=== PATIENT | female | born 1995 | race Asian ===

== ENCOUNTER 2018-03-28 15:04 | Emergency (ER) | payer OTHER ==
[~2018-03-28] VITALS: Ht 162.6 cm; Wt 54.4 kg
[2018-03-28 15:10] VITALS: BP 113/69
[2018-03-28] MEDS ORDERED: NKM (15:11)
[2018-03-28] MEDS ORDERED: levETIRAcetam 500 MG in D5W 110 ML IV ONE (15:30)
[2018-03-28 15:42] LABS: BASOPHILS % (AUTO) 0.8 % (0.0-2.0); EOSINOPHILS % (AUTO) 2.2 % (0.0-3.0); HEMATOCRIT 37.7 % (37.0-47.0); HEMOGLOBIN 13.1 G/DL (12.0-16.0); LYMPHOCYTES % (AUTO) 16.2 % (20.0-45.0); MEAN CORPUSCULAR VOLUME 91 FL (80-99); MONOCYTES % (AUTO) 5.5 % (1.0-10.0); NEUTROPHILS % (AUTO) 75.3 % (45.0-75.0); PLATELET COUNT 331 K/UL (150-450); RED BLOOD COUNT 4.14 M/UL (4.20-5.40); RED CELL DISTRIBUTION WIDTH 10.8 % (11.6-14.8); WHITE BLOOD COUNT 8.7 K/UL (4.8-10.8)
[2018-03-28 15:52] LABS: BILIRUBIN, URINE NEGATIVE (NEGATIVE); COLOR,URINE PALE YELLOW; GLUCOSE, URINE (UA) NEGATIVE (NEGATIVE); KETONES,URINE 1+ (NEGATIVE); LEUKOCYTE ESTERASE ,URINE 2+ (NEGATIVE); NITRITE,URINE NEGATIVE (NEGATIVE); PH,URINE 5 (4.5-8.0); PROTEIN,URINE 3+ (NEGATIVE); UROBILINOGEN,URINE NORMAL MG/DL (0.0-1.0)
[2018-03-28 15:54] LABS: ANION GAP 13 mmol/L (5-15); BLOOD UREA NITROGEN 12 mg/dL (7-18); CARBON DIOXIDE 21 MMOL/L (21-32); CHLORIDE 103 MMOL/L (98-107); CREATININE 0.8 MG/DL (0.55-1.30); POTASSIUM 3.5 MMOL/L (3.5-5.1); SODIUM 137 MMOL/L (136-145)
[2018-03-28 15:58] LABS: ALANINE AMINOTRANSFERASE 21 U/L (12-78); ALBUMIN/GLOBULIN RATIO 1.1 (1.0-2.7); ALKALINE PHOSPHATASE 42 U/L (46-116); ASPARTATE AMINO TRANSFERASE 15 U/L (15-37); BILIRUBIN,TOTAL 0.3 MG/DL (0.2-1.0)
[2018-03-28 16:01] LABS: APPEARANCE,URINE SLIGHTLY CLOUDY
[2018-03-28] MEDS ORDERED: cefTRIAXone 1 GM in NS 55 ML IVPB ONE (16:15)
[2018-03-28] MEDS ORDERED: KEPPRA500 M4 ORAL (16:43)
[2018-03-28] MEDS ORDERED: CEPHALEXIN500 MG ORAL (16:43)
--- NOTE | 2018-03-28 16:51 | Emergency Room Report ---
History of Present Illness General Chief Complaint: Seizure Source: Patient Present Illness HPI Patient's 22-year-old female presented after witnessed seizure. Patient had prior history of intermittent seizures. The patient states she's had this for the past several years approximately once a year. The patient previously been seen by neurology and had previous MRI. The patient had prior history of seizure but is not currently taking any medications.The patient had no current complaints of pain. She denies any vomiting or diarrhea Allergies: Coded Allergies: No Known Allergies (Unverified , 03/28/18) Patient History Past Medical History: see triage record Last Menstrual Period: 03/2018 Reviewed Nursing Documentation: PMH: Agreed; PSxH: Agreed Nursing Documentation-PMH Past Medical History: No History, Except For Review of Systems All Other Systems: negative except mentioned in HPI Physical Exam Vital Signs Date Time Temp Pulse Resp B/P (MAP) Pulse Ox O2 Delivery O2 Flow Rate FiO2 03/28/18 15:05 98.4 114 20 137/93 99 Room Air 98.4 Sp02 EP Interpretation: reviewed, normal General Appearance: normal inspection, well appearing, no apparent distress, alert, GCS 15 Head: atraumatic ENT: normal ENT inspection, hearing grossly normal, normal voice Neck: normal inspection, full range of motion, supple, no bony tend Respiratory: normal inspection, lungs clear, normal breath sounds, no respiratory distress, no retraction, no wheezing Cardiovascular #1: regular rate, rhythm, no edema Gastrointestinal: normal inspection, normal bowel sounds, non tender, soft, no guarding, no hernia Genitourinary: no CVA tenderness Musculoskeletal: normal inspection, back normal, normal range of motion Neurologic: normal inspection, alert, responsive, speech normal Psychiatric: normal inspection, judgement/insight normal, mood/affect normal Skin: normal color, no rash, other - multiple skin nodular lesions Medical Decision Making Diagnostic Impression: Primary Impression: Seizure Additional Impressions: Tuberous sclerosis UTI (urinary tract infection) ER Course Patient presented for seizure. Differential diagnosis included cysticercosis, electrolyte abnormality, mass lesion, or cranial hemorrhage.Because of complexity of patient's case laboratory testing were ordered. Patient was given IV antibiotics for urinary tract infection. The patient was started with IV Keppra. Patient will need follow-up with neurology as an outpatient.The patient is advised to follow up with primary care doctor in 1-2 days. Patient is advised to return if any worsening condition or if any changes in status that are concerning. This report is dictated with [employer] pl[employer] apprentice software which may occasionally lead to discrepancies related to use of this software. Last Vital Signs Date Time Temp Pulse Resp B/P (MAP) Pulse Ox O2 Delivery O2 Flow Rate FiO2 03/28/18 15:10 78 21 113/69 100 Room Air 03/28/18 15:05 98.4 98.4 Disposition: HOME, SELF-CARE Condition: Stable Scripts Cephalexin* (KEFLEX*) 500 Mg Capsule 500 MG ORAL EVERY 6 HOURS, #28 CAP Prov: Omari Rivera MD 03/28/18 Levetiracetam (KEPPRA) 500 Mg Tablet 500 MG ORAL EVERY 12 HOURS, #30 TAB 0 Refills Prov: Omari Rivera MD 03/28/18 Patient Instructions: Seizure, Adult Omari Rivera MD Mar 28, 2018 16:51
[2018-03-28 17:05] VITALS: BP 109/69
== END 2018-03-28 17:07 | disposition home or self-care (01) ==
LOC: EDBD 15:04 → EMR 15:45
DX: R56.9 Unspecified convulsions (principal); Q85.1 Tuberous sclerosis; N39.0 Urinary tract infection, site not specified
CPT/HCPCS: 36415; 80053; 80307; 81003; 81025; 85025; 87086; 96365; 96375; 99284; J0696; J1953